=== PATIENT | female | born 1960 | race Caucasian/White ===

== ENCOUNTER → 2023-07-28 08:44 | Outpatient (CLI) | payer OTHER ==
[~2023-07-28 08:44] MED LIST: CLONAZEPAM0.5 M1 PO; COZAAR25 MG PO; METFORMIN HCL500 M3 PO; PAXIL20 MG PO; TOPROL XL25 M1 PO
[2023-07-28 09:38] LABS: URINE APPEARANCE Clear; URINE BILIRRUBIN Negative (NEGATIVE); URINE BLOOD Negative; URINE COLOR Yellow; URINE GLUCOSE Negative (NEGATIVE); URINE LEUKOCYTE Small; URINE NITRATE Negative; URINE PROTEIN Negative (NEGATIVE); URINE UROBILINOGEN 0.2 E.U./dl
[2023-07-28 09:39] LABS: URINE BACTERIA 57.9 uL (0.0-1933); URINE EPITHELIAL CELLS 5.8 uL (0.0-38.8); URINE WBC 21.9 uL (0.0-23.2)
[2023-07-28 10:09] LABS: HEMATOCRIT 30.7 % (36.0-45.00); HEMOGLOBIN 10.2 g/dL (12.0-15.00); MEAN CELL VOLUME 86.9 fL (80.00-100.00); MEAN CORPUSCULAR HEMOGLOBIN 28.9 pg (27.00-32.0); MEAN CORPUSCULAR HGB CONC 33.3 g/dl (32.0-36.0); PLATELET COUNT 339 K/uL (150-450); RED BLOOD COUNT 3.53 M/uL (4.00-6.00)
[2023-07-28 10:40] LABS: ALBUMIN 3.8 gm/dL (3.4-5.0); BILIRUBIN TOTAL 0.4 mg/dL (0.3-1.2); CALCIUM 9.2 mg/dL (8.5-10.1); CREATININE SERUM 1.09 mg/dL (0.55-1.02); GFR 50.53; GLOBULINA 2.9 G/DL (2.4-3.5); POTASSIUM 3.82 mEq/L (3.5-5.1); TOTAL PROTEIN 6.7 gm/dL (6.4-8.2)
[2023-07-28 11:34] LABS: COL EPI 92 SECONDS (82-175)
[2023-07-28 12:04] LABS: PARTIAL THROMBOPLASTIN TIME 29.9 SECONDS (22.0-34.0); PROTHROMBIN TIME 11.4 SECONDS (9.0-11.5)
== END | disposition home or self-care (01) ==
LOC: LAB 08:44 → RAD 08:44
PROVIDERS: ATTEND Orthopaedic Surgery
DX: Z76.89 Persons encountering health services in other specified circumstances (principal)

== ENCOUNTER 2023-07-29 09:41 | Day surgery (SDC) | payer OTHER ==
[2023-07-29] MEDS ORDERED: CEFAZOLIN SODIUM 1,000 MG VIAL ONE (12:25)
[2023-07-29] MEDS ORDERED: BUPIVACAINE HCL/PF 0.5% 5MG/ML VIAL IJ ONE (15:00)
[2023-07-29] MEDS ORDERED: CEFAZOLIN SODIUM 1,000 MG VIAL IV ONE (15:00)
== END 2023-07-29 17:20 | disposition home or self-care (01) ==
LOC: CIR.AMB 09:41
PROVIDERS: ATTEND Orthopaedic Surgery
DX: S82.62XA Displaced fracture of lateral malleolus of left fibula, initial encounter for closed fracture (principal); S93.492A Sprain of other ligament of left ankle, initial encounter
CPT/HCPCS: 27792; 27829; L8699

== ENCOUNTER 2023-10-01 13:53 | Outpatient (CLI) | payer OTHER | END 2023-10-01 13:58 | disposition home or self-care (01) | LOC: RAD 13:53 | DX: S92.902B Unspecified fracture of left foot, initial encounter for open fracture (principal); M79.672 Pain in left foot ==